=== PATIENT | male | born 1950 | race Caucasian/White ===

== ENCOUNTER → 2024-03-13 | Outpatient (CLI) | payer OTHER ==
[2024-03-13 19:47] LABS: Albumin, Blood 3.4 g/dL (3.4-5.0); Bilirubin, Total 0.7 mg/dL (0.1-1.0); Bun/Creatinine Ratio 32.2 (12.0-20.0); Calcium, Blood 9.6 mg/dL (8.5-10.1); Creatinine, Blood 0.93 mg/dL (0.60-1.20); Globulin, Blood 3.5 g/dL (2.2-4.0); Potassium, Blood 4.5 mmol/L (3.5-5.5); Total Protein, Blood 6.9 g/dL (6.4-8.2)
== END ==
LOC: LAB SHORT 18:53 → LAB 18:53
PROVIDERS: Nurse Practitioner Family
DX: R60.0 Localized edema (principal)
CPT/HCPCS: 80053; 83880

== ENCOUNTER 2024-04-14 01:45 | Day surgery (SDC) | payer OTHER ==
[2024-04-14] MEDS ORDERED: Lidocaine HCl 4% Cream 5 GM ONE (14:58)
== END 2024-04-14 04:20 | disposition home or self-care (01) ==
LOC: WOUND 01:45
DX: S81.801A Unspecified open wound, right lower leg, initial encounter (principal); S91.002A Unspecified open wound, left ankle, initial encounter; S81.812A Laceration without foreign body, left lower leg, initial encounter; S81.811A Laceration without foreign body, right lower leg, initial encounter; I73.9 Peripheral vascular disease, unspecified; I87.2 Venous insufficiency (chronic) (peripheral); I10 Essential (primary) hypertension; J44.9 Chronic obstructive pulmonary disease, unspecified
CPT/HCPCS: A9270; G0463

== ENCOUNTER 2024-05-05 07:11 | Day surgery (SDC) | payer OTHER | END 2024-05-05 23:55 | disposition home or self-care (01) | LOC: WOUND 07:11 | DX: S81.801D Unspecified open wound, right lower leg, subsequent encounter (principal); X58.XXXD Exposure to other specified factors, subsequent encounter; I10 Essential (primary) hypertension; J44.9 Chronic obstructive pulmonary disease, unspecified | CPT/HCPCS: G0463 ==

== ENCOUNTER → 2024-12-05 | Outpatient (CLI) | payer OTHER ==
[2024-12-05 19:23] LABS: BASOPHILS ABSOLUTE AUTO 0.05 K/mm3 (0.00-0.23); BASOPHILS PERCENT AUTO 1 % (0-2); EOSINOPHILS ABSOLUTE AUTO 0.39 K/mm3 (0.00-0.68); EOSINOPHILS PERCENT AUTO 5 % (0-6); Hematocrit 47.7 % (37.0-53.0); Hemoglobin 15.6 g/dL (13.5-17.5); IMMATURE GRAN ABSOLUTE AUTO 0.02 K/mm3 (0.00-0.10); IMMATURE GRAN PERCENT AUTO 0 % (0-1); LYMPHOCYTES ABSOLUTE AUTO 1.71 K/mm3 (0.84-5.20); LYMPHOCYTES PERCENT AUTO 20 % (21-46); MONOCYTES ABSOLUTE AUTO 0.86 K/mm3 (0.16-1.47); MONOCYTES PERCENT AUTO 10 % (4-13); Mean Corpuscular HGB 32.6 pg (26.0-34.0); Mean Corpuscular HGB Conc 32.7 g/dL (31.5-36.5); Mean Corpuscular Volume 100 fL (80-100); Mean Platelet Volume 12.3 fL (9.1-12.4); NEUTROPHILS ABSOLUTE AUTO 5.48 K/mm3 (1.96-9.15); NEUTROPHILS PERCENT AUTO 64 % (41-73); Platelet Count 161 K/mm3 (150-400); RDW Coefficient Variation 14.2 % (11.7-14.2); RDW Standard Deviation 52.8 fL (35.1-46.3); Red Blood Cell Count 4.78 M/mm3 (4.30-5.90); White Blood Cell Count 8.51 K/mm3 (4.00-11.30)
[2024-12-05 20:09] LABS: Albumin, Blood 3.5 g/dL (3.4-5.0); Albumin/Globulin Ratio 0.8 (0.8-1.8); Bilirubin, Total 0.7 mg/dL (0.1-1.0); Bun/Creatinine Ratio 21.2 (12.0-20.0); Calcium, Blood 9.6 mg/dL (8.5-10.1); Creatinine, Blood 0.71 mg/dL (0.60-1.20); Globulin, Blood 4.6 g/dL (2.2-4.0); Potassium, Blood 4.2 mmol/L (3.5-5.5); Total Protein, Blood 8.1 g/dL (6.4-8.2)
[2024-12-08 17:26] LABS: HEPATITIS C AB CIA INTERP Negative (Negative); HEPATITIS C ANTIBODY CIA INDEX 0.17 IV
== END | disposition home or self-care (01) ==
LOC: LAB SHORT 18:31 → LAB 18:31
PROVIDERS: Family Medicine
DX: Z11.59 Encounter for screening for other viral diseases (principal); E55.9 Vitamin D deficiency, unspecified; Z79.899 Other long term (current) drug therapy
CPT/HCPCS: 80053; 82306; 85025; 86803

== ENCOUNTER → 2025-08-11 | Outpatient (CLI) | payer OTHER ==
[2025-08-11 19:57] LABS: Hematocrit 53.6 % (37.0-53.0); Hemoglobin 16.6 g/dL (13.5-17.5); Mean Corpuscular HGB Conc 31.0 g/dL (31.5-36.5); Mean Corpuscular Volume 101 fL (80-100); NRBC ABSOLUTE 0.00 K/mm3 (0.00-0.02); NRBC Auto 0.0 /100 WBC (0.0-0.2); Platelet Count 176 K/mm3 (150-400); RDW Coefficient Variation 14.1 % (11.7-14.2); RDW Standard Deviation 52.7 fL (35.1-46.3)
[2025-08-11 21:17] LABS: Alanine Aminotransfer (ALT/SGP 21 U/L (12-78); Albumin, Blood 3.3 g/dL (3.4-5.0); Albumin/Globulin Ratio 0.6 (0.8-1.8); Anion Gap 7 mmol/L (3-11); Aspartate Aminotrans (AST/SGOT 22 U/L (12-37); Bilirubin, Total 0.8 mg/dL (0.1-1.0); Blood Urea Nitrogen 16 mg/dL (8-24); CHOL/HDL RATIO 2.1; CO2, Blood 34 mmol/L (21-32); Calcium, Blood 9.9 mg/dL (8.5-10.1); Chloride, Blood 101 mmol/L (98-108); Cholesterol 120 mg/dL (50-200); Creatinine, Blood 0.71 mg/dL (0.60-1.20); Globulin, Blood 5.3 g/dL (2.2-4.0); Glucose, Blood 99 mg/dL (70-99); HDL Cholesterol 58 mg/dL (>39); LDL/HDL RATIO 0.9; Low Density Lipoprotein Chol 50 mg/dL (0-110); Potassium, Blood 4.6 mmol/L (3.5-5.5); Sodium, Blood 137 mmol/L (136-145); Thyroid Stimulating Hormone 0.637 uIU/mL (0.360-4.800); Total Protein, Blood 8.6 g/dL (6.4-8.2); Triglycerides 62 mg/dL (30-160); Very Low Density Lipoprot Chol 12 mg/dL (6-32)
== END ==
LOC: LAB SHORT 19:15 → LAB 19:15
PROVIDERS: Student in an Organized Health Care Education/Training Program
DX: Z13.1 Encounter for screening for diabetes mellitus (principal); E78.5 Hyperlipidemia, unspecified; I50.42 Chronic combined systolic (congestive) and diastolic (congestive) heart failure
CPT/HCPCS: 80053; 80061; 83036; 83880; 84443; 85027